=== PATIENT | female | born 1970 ===

== ENCOUNTER → 2018-09-06 21:32 | Outpatient (REF) | payer OTHER, MEDICAID, SELFPAY ==
[2018-09-06 22:27] LABS: Add Manual Diff / Slide Review NO; Basophils Absolute Auto 0 /uL (0-100); Basophils Percent Auto 0.6 % (0-2); Eosinophils Absolute Auto 0 /uL (0-450); Eosinophils Percent Auto 0.6 % (2-4); Hematocrit 38.6 % (36-46); Hemoglobin 12.9 g/dL (12.0-16.0); Lymphocytes Absolute Auto 1600 /uL (1100-4500); Lymphocytes Percent Auto 23.3 % (25-40); Mean Corpuscular HGB Conc 33.4 % (30-36); Mean Corpuscular Hemoglobin 32.3 PG (26-34); Mean Corpuscular Volume 96.6 fL (80-100); Monocytes Absolute Auto 300 /uL (0-900); Monocytes Percent Auto 4.7 % (3-14); Neutrophils Absolute Auto 5000 /uL (1500-7000); Neutrophils Percent Auto 70.8 % (50-75); Platelet Count 244 X10^3/uL (150-400); Red Cell Distribution Width 14.6 % (11.6-14.8); White Blood Cell Count 7.1 X10^3/uL (4.5-11.0)
[2018-09-06 22:43] LABS: HEMOLYSIS < 15 (0-50); Iron 91 ug/dL (37-170)
[2018-09-06 22:56] LABS: Percent Iron Saturation 28 % (15-50); Total Iron Binding Capacity 328 ug/dL (265-497); Transferrin 266 mg/dL (206-381)
[2018-09-06 23:12] LABS: Ferritin 14.5 ng/mL (6.27-137)
== END ==
LOC: LAB 21:32
PROVIDERS: Visit Provider Naturopath
DX: E61.1 Iron deficiency (principal); R53.83 Other fatigue
CPT/HCPCS: 36415; 82728; 83540; 83550; 85025